=== PATIENT | male | born 1950 | race African-American/Black ===

== ENCOUNTER 2019-10-03 14:44 | Emergency (ER) | payer BC, MEDICARE ==
[~2019-10-03] VITALS: Ht 175.3 cm; Wt 90.0 kg
[2019-10-03 14:48] VITALS: BP 134/73
[2019-10-03] MEDS ORDERED: IBUPROFEN 800MG TABLET PO ONE (15:45)
[2019-10-03] MEDS ORDERED: ACETAMINOPHEN 500MG TABLET PO ONE (15:45)
== END 2019-10-03 17:41 | disposition home or self-care (01) ==
LOC: ER 14:44
DX: S53.402A Unspecified sprain of left elbow, initial encounter (principal); S46.912A Strain of unspecified muscle, fascia and tendon at shoulder and upper arm level, left arm, initial encounter; S20.212A Contusion of left front wall of thorax, initial encounter; Y93.55 Activity, bike riding; Y92.89 Other specified places as the place of occurrence of the external cause
CPT/HCPCS: 29240; 71045; 73030; 73070; 73110; 73130; 99283; A4565